=== PATIENT | female | born 1990 | race American Indian/Alaskan Native ===

== ENCOUNTER 2024-07-20 09:58 | Emergency (ER) | payer SELFPAY | END 2024-07-20 11:18 | disposition home or self-care (01) | LOC: VM.ED 09:58 | DX: J02.0 Streptococcal pharyngitis (principal); F17.210 Nicotine dependence, cigarettes, uncomplicated | CPT/HCPCS: 87428-QW; 87651-QW; 99283 ==

== ENCOUNTER 2024-09-14 08:26 | Emergency (ER) | payer MEDICAID ==
[2024-09-14] MEDS: Orphenadrine 60 MG/2 ML Inj IM ONE (08:54)
[2024-09-14] MEDS: Ketorolac 30 MG/ML SDV IM ONE (08:54)
== END 2024-09-14 09:00 | disposition home or self-care (01) ==
LOC: VM.ED 08:26
DX: M43.6 Torticollis (principal); E66.9 Obesity, unspecified; F17.210 Nicotine dependence, cigarettes, uncomplicated; Z68.43 Body mass index [BMI] 50.0-59.9, adult
CPT/HCPCS: 96372; 99283; J1885; J2360

== ENCOUNTER 2024-10-21 07:09 | Emergency (ER) | payer MEDICARE, MEDICAID | END 2024-10-21 07:36 | disposition home or self-care (01) | LOC: VM.ED 07:09 | DX: K04.7 Periapical abscess without sinus (principal) | CPT/HCPCS: 99282; 99283 ==

== ENCOUNTER 2025-06-30 09:53 | Emergency (ER) | payer MEDICARE, MEDICAID | END 2025-06-30 10:15 | disposition home or self-care (01) | LOC: VM.ED 09:53 | DX: K08.89 Other specified disorders of teeth and supporting structures (principal); Z88.5 Allergy status to narcotic agent; Z79.899 Other long term (current) drug therapy | CPT/HCPCS: 99282; 99283 ==